=== PATIENT | male | born 1960 | race Caucasian/White ===

== ENCOUNTER 2024-03-11 13:54 | Inpatient (IN) | payer MEDICARE, BC ==
[~2024-03-11] VITALS: Ht 175.3 cm; Wt 91.7 kg
[2024-03-11 14:51] LABS: Basophils # (auto) 0 10 ^3/uL (0-0.2); Basophils % (auto) 0.3 % (0.0-2.0); Eosinophils # (auto) 0 10 ^3/uL (0-0.8); Eosinophils % (auto) 0.2 % (0.0-7.0); Hematocrit 44.9 % (41.0-53.0); Hemoglobin 15.3 g/dL (13.5-17.5); Lymphocytes # (auto) 0.9 10 ^3/uL (0.4-5.4); Lymphocytes % (auto) 8.3 % (10.0-50.0); Mean Corpuscular Hgb Conc. 34.1 g/dL (32.0-36.0); Monocytes # (auto) 0.8 10 ^3/uL (0-1.3); Monocytes % (auto) 7.4 % (0.0-12.0); Neutrophils # (auto) 8.9 10 ^3/uL (1.6-8.6); Neutrophils % (auto) 83.8 % (37.0-80.0); Nucleated Red Blood Cells % 0.1 %; Red Blood Cells 5.28 10^6/uL (4.5-5.90); Red Cell Distribution Width 13.3 % (11.8-14.3); White Blood Cell 10.6 10^3/uL (4.4-10.8)
[2024-03-11 15:03] LABS: Chloride 107 mmol/L (98-107); Potassium 4.2 mmol/L (3.5-5.1); Sodium 138 mmol/L (136-145)
[2024-03-11 15:04] LABS: Anion Gap 3 (5-15); Calcium 9.5 mg/dL (8.5-10.1); Carbon Dioxide 28 mmol/L (20-30)
[2024-03-11 15:09] LABS: BUN/Creatinine Ratio 13.2 (10.0-20.0); Blood Urea Nitrogen 15 mg/dL (9-23); Glucose 147 mg/dL (74-106)
[2024-03-11] MEDS: SODIUM CHLORIDE 0.9% 1,000 ML IV ONE ×2 (18:43→20:00)
[2024-03-11] MEDS: MORPHINE SULFATE 4 MG/ML SYR/VIAL IV ONE (18:44)
[2024-03-11] MEDS: ONDANSETRON HCL 4 MG/2 ML VIAL IV ONE (18:45)
[2024-03-11] MEDS: PIPERACILLIN-TAZOB 3.375GM 100 ML IV ONE (18:47)
[2024-03-11] MEDS ORDERED: ACETAMINOPHEN 325 MG TAB PO PRN (21:15)
[2024-03-11] MEDS ORDERED: TEMAZEPAM 15 MG CAP PO PRN (21:15)
[2024-03-11] MEDS: metroNIDAZOLE 500 MG TAB PO SCH (23:27)
[2024-03-11] MEDS: HYDROcodone-ACET 5/325MG TAB PO PRN (23:28)
[2024-03-12 04:45] LABS: Basophils # (auto) 0 10 ^3/uL (0-0.2); Basophils % (auto) 0.4 % (0.0-2.0); Eosinophils # (auto) 0.1 10 ^3/uL (0-0.8); Eosinophils % (auto) 0.8 % (0.0-7.0); Hematocrit 41.3 % (41.0-53.0); Hemoglobin 13.9 g/dL (13.5-17.5); Lymphocytes # (auto) 1.6 10 ^3/uL (0.4-5.4); Mean Corpuscular Hemoglobin 28.7 pg (28.0-32.0); Mean Corpuscular Hgb Conc. 33.6 g/dL (32.0-36.0); Mean Corpuscular Volume 85.4 fL (80.0-100.0); Monocytes # (auto) 0.7 10 ^3/uL (0-1.3); Monocytes % (auto) 7.7 % (0.0-12.0); Neutrophils # (auto) 6.3 10 ^3/uL (1.6-8.6); Neutrophils % (auto) 73.1 % (37.0-80.0); Nucleated Red Blood Cells % 0.1 %; Red Blood Cells 4.83 10^6/uL (4.5-5.90); Red Cell Distribution Width 13.6 % (11.8-14.3); White Blood Cell 8.6 10^3/uL (4.4-10.8)
[2024-03-12 05:06] LABS: Alanine Aminotransferase 12 U/L (7-40); Alkaline Phosphatase 75 U/L (46-116); Anion Gap 5 (5-15); BUN/Creatinine Ratio 14.3 (10.0-20.0); Blood Urea Nitrogen 15 mg/dL (9-23); Calcium 9.3 mg/dL (8.5-10.1); Carbon Dioxide 27 mmol/L (20-30); Chloride 109 mmol/L (98-107); Glucose 124 mg/dL (74-106); Potassium 4.1 mmol/L (3.5-5.1); Sodium 141 mmol/L (136-145)
[2024-03-12 05:07] LABS: Aspartate Aminotransferase < 8 U/L (13-40); Bilirubin, Total 1.1 mg/dL (0.2-1.0); Total Protein 6.5 g/dL (5.7-8.2)
[2024-03-12 07:28] VITALS: PULSE 68; RESP 20; O2SAT 95
[2024-03-12 08:36] VITALS: PULSE 82; RESP 18; O2SAT 95
[2024-03-12] MEDS: cefTRIAXone 1GM/50ML D5W 50 ML IV SCH (10:02)
[2024-03-12] MEDS ORDERED: OMEP20TA PO (10:07)
[2024-03-12] MEDS ORDERED: DUTA0.5C11 PO (10:07)
[2024-03-12] MEDS ORDERED: ZOFR4T PO (10:07)
[2024-03-12] MEDS ORDERED: ALPR1TAB2 PO (10:07)
[2024-03-12 13:00] VITALS: BP 149/98; PULSE 78; RESP 18; TEMP 97.3; O2SAT 98
[2024-03-12] MEDS: SODIUM CHLORIDE 0.9% 1,000 ML IV SCH (13:33)
[2024-03-12] MEDS: PANTOPRAZOLE 40 MG/10 ML VIAL INJ IV ONE (13:33)
[2024-03-12] MEDS: MORPHINE SULFATE INJ 2 MG/ml SYRG IV PRN (14:06)
[2024-03-12] MEDS: ONDANSETRON HCL 4 MG/2 ML VIAL IV PRN (14:07)
[2024-03-12 17:00] VITALS: BP 148/98; PULSE 70; RESP 18; TEMP 98.7; O2SAT 98
[2024-03-12 21:00] VITALS: BP 155/76; PULSE 71; RESP 18; TEMP 97.5; O2SAT 96
[2024-03-13 01:00] VITALS: BP 155/90; PULSE 73; RESP 18; TEMP 97.9; O2SAT 95
[2024-03-13 05:00] VITALS: BP 137/85; PULSE 75; RESP 18; TEMP 97.7; O2SAT 97
[2024-03-13 07:03] LABS: Basophils # (auto) 0 10 ^3/uL (0-0.2); Basophils % (auto) 0.2 % (0.0-2.0); Eosinophils # (auto) 0.1 10 ^3/uL (0-0.8); Eosinophils % (auto) 1.5 % (0.0-7.0); Hematocrit 39.2 % (41.0-53.0); Hemoglobin 13.4 g/dL (13.5-17.5); Lymphocytes # (auto) 1.1 10 ^3/uL (0.4-5.4); Lymphocytes % (auto) 18.5 % (10.0-50.0); Mean Corpuscular Hgb Conc. 34.2 g/dL (32.0-36.0); Mean Corpuscular Volume 84.9 fL (80.0-100.0); Monocytes # (auto) 0.4 10 ^3/uL (0-1.3); Monocytes % (auto) 6.8 % (0.0-12.0); Neutrophils # (auto) 4.2 10 ^3/uL (1.6-8.6); Red Blood Cells 4.62 10^6/uL (4.5-5.90); Red Cell Distribution Width 13.4 % (11.8-14.3); White Blood Cell 5.7 10^3/uL (4.4-10.8)
[2024-03-13 07:14] LABS: Calcium 9.4 mg/dL (8.5-10.1); Chloride 110 mmol/L (98-107); Potassium 3.9 mmol/L (3.5-5.1); Sodium 141 mmol/L (136-145)
[2024-03-13 07:15] LABS: Anion Gap 5 (5-15); Carbon Dioxide 26 mmol/L (20-30)
[2024-03-13 07:20] LABS: BUN/Creatinine Ratio 9.5 (10.0-20.0); Blood Urea Nitrogen 9 mg/dL (9-23); Glucose 105 mg/dL (74-106)
[2024-03-13 08:00] VITALS: PULSE 78; RESP 18; O2SAT 97
[2024-03-13 09:00] VITALS: BP 125/76; PULSE 78; RESP 18; TEMP 98; O2SAT 97
[2024-03-13] MEDS: PANTOPRAZOLE 40 MG/10 ML VIAL INJ IV SCH (09:07)
[2024-03-13 12:30] VITALS: BP 140/79; PULSE 72; RESP 17; TEMP 97.6; O2SAT 97
[2024-03-13] MEDS ORDERED: LEVO500T91 PO (13:28)
[2024-03-13] MEDS ORDERED: MET500T PO (13:28)
[2024-03-13 14:12] VITALS: TEMP 36.4
== END 2024-03-13 15:00 | disposition home or self-care (01) | DRG 392 ==
LOC: ER 13:54 → OVERFLOW 21:09 → WEST WING 03-12 08:28
PROVIDERS: ADMIT Nurse Practitioner; ATTEND Internal Medicine
DX: K57.32 Diverticulitis of large intestine without perforation or abscess without bleeding (principal); N20.0 Calculus of kidney; K21.9 Gastro-esophageal reflux disease without esophagitis; N40.0 Benign prostatic hyperplasia without lower urinary tract symptoms; R16.1 Splenomegaly, not elsewhere classified; Z85.01 Personal history of malignant neoplasm of esophagus; Z83.3 Family history of diabetes mellitus; Z82.49 Family history of ischemic heart disease and other diseases of the circulatory system; Z90.49 Acquired absence of other specified parts of digestive tract; Z79.899 Other long term (current) drug therapy
CPT/HCPCS: 36415; 74176; 80048; 80053; 83605; 84484; 85025; 87040; C9113; G0378; J2405; J2543

== ENCOUNTER 2024-07-28 08:19 | Emergency (ER) | payer MEDICARE, BC ==
[~2024-07-28] VITALS: Ht 175.3 cm; Wt 89.5 kg
[~2024-07-28 08:19] MED LIST: ALPR1TAB2 PO; DUTA0.5C11 PO; LEVO500T91 PO; MET500T PO; OMEP20TA PO; ZOFR4T PO
[2024-07-28] MEDS: NEOMYCIN-BACITRACIN-POLYM 15GM TOP OINT TOP SCH (09:24)
[2024-07-28 09:28] VITALS: PULSE 91; RESP 16; O2SAT 96
[2024-07-28] MEDS: HYDROcodone-ACET 5/325MG TAB PO ONE (09:28)
[2024-07-28] MEDS ORDERED: IBU600T PO (11:24)
[2024-07-28] MEDS ORDERED: CYCL-838 PO (11:24)
[2024-07-28 11:46] VITALS: BP 162/90; PULSE 72; RESP 18; O2SAT 96
[2024-07-28] MEDS ORDERED: HYDR-4902 PO (12:00)
== END 2024-07-28 11:50 | disposition home or self-care (01) ==
LOC: ER 08:19
DX: S76.012A Strain of muscle, fascia and tendon of left hip, initial encounter (principal); S73.102A Unspecified sprain of left hip, initial encounter; K21.9 Gastro-esophageal reflux disease without esophagitis; Z88.8 Allergy status to other drugs, medicaments and biological substances; Z79.899 Other long term (current) drug therapy; Z87.442 Personal history of urinary calculi; X58.XXXA Exposure to other specified factors, initial encounter; Y93.9 Activity, unspecified; Y92.89 Other specified places as the place of occurrence of the external cause; Y99.8 Other external cause status
CPT/HCPCS: 73090; 73502; 73610

== ENCOUNTER 2025-07-29 12:10 | Emergency (ER) | payer MEDICARE, BC ==
[~2025-07-29] VITALS: Ht 175.3 cm; Wt 89.7 kg
[~2025-07-29 12:10] MED LIST changes: +CYCL-838 PO; +HYDR-4902 PO; +IBU600T PO
[2025-07-29 12:39] VITALS: BP 166/98; PULSE 67; RESP 16; TEMP 98.2; O2SAT 97
[2025-07-29 12:49] LABS: Hematocrit 44.4 % (41.0-53.0); Hemoglobin 15.2 g/dL (13.5-17.5); Mean Corpuscular Hemoglobin 29.2 pg (28.0-32.0); Mean Corpuscular Volume 85.7 fL (80.0-100.0); Nucleated Red Blood Cells % 0.2 %
[2025-07-29 13:03] LABS: Alanine Aminotransferase 28 U/L (7-40); Albumin 4.1 g/dL (3.2-4.8); Alkaline Phosphatase 88 U/L (46-116); Anion Gap 9 (5-15); BUN/Creatinine Ratio 14.5 (10.0-20.0); Blood Urea Nitrogen 20 mg/dL (9-23); Calcium 9.5 mg/dL (8.7-10.4); Carbon Dioxide 28 mmol/L (20-31); Chloride 106 mmol/L (98-107); Glucose 82 mg/dL (74-106); Potassium 4.5 mmol/L (3.5-5.1); Sodium 143 mmol/L (136-145); Total Protein 6.6 g/dL (5.7-8.2)
[2025-07-29 13:04] LABS: Bilirubin, Total 0.8 mg/dL (0.2-1.0)
--- NOTE | 2025-07-29 13:05 | DVH ---
Exam: CT CT AB PEL WO CON-NO ORAL OR IV History: RLQ PAIN Comparison Study: CT CT AB PEL WO CON-NO ORAL OR IV on DOS: 03/11/24 TECHNIQUE: Multidetector CT of the abdomen was performed from lung bases to pubic symphysis. Imaging was performed without IV contrast. Axial, coronal and sagittal multiplanar reformats were obtained from the axial data set by the technologist. Radiation Dose Information: CT Dose: CTDI volume is 17.25 mGy. Dose-length product is 1067.23 mGy*cm FINDINGS: Evaluation of solid organs is limited due to lack of intravenous contrast use. Findings: Lung Bases: No acute or significant lung base finding. Normal heart size. No pleural or pericardial effusion. Liver: Hepatic steatosis. Gallbladder and Biliary Tree: Unremarkable Spleen: Unremarkable Pancreas: The pancreas is grossly normal in appearance. Adrenal Glands: Unremarkable Kidneys: Nonobstructing left upper pole renal calculi. There is a 2 cm right renal cyst. There is a punctate 1 mm right lower pole renal calculus. Bladder: Grossly unremarkable for degree of distention. Bowel: The stomach is grossly normal in appearance. Colonic diverticular disease involving the sigmoid colon. Normal appendix is visualized in the right lower quadrant without findings of appendicitis. Ascites: Absent Lymphadenopathy: No mesenteric, retroperitoneal or periportal lymphadenopathy. Abdominal Wall and Mesentery: Unremarkable. Vasculature: The visualized abdominal aorta is normal in size and caliber. Evaluation of abdominal and pelvic vessels is limited due to lack of intravenous contrast. Pelvic Organs: Unremarkable Musculoskeletal: No aggressive focal bony lesions, acute fractures or dislocation. Soft tissues: Unremarkable IMPRESSION: No acute disease. Colonic diverticular disease involving the sigmoid colon. Moderate hiatal hernia. Nonobstructing left upper pole renal calculi. There is a 2 cm right renal cyst. There is a punctate 1 mm right lower pole renal calculus. Radiation optimization: All CT scans at this facility use at least one of these dose optimization techniques: automated exposure control mA and/or kV adjustment per patient size (includes targeted exams where dose is matched to clinical indication) or iterative reconstruction.
[2025-07-29 13:08] LABS: Urine Protein, UAD Negative (Negative)
--- NOTE | 2025-07-29 13:30 | ED.PDOC ---
GI ASSESSMENT HPI Comments HPI: 64 y/o M, presents to the ED for CC of abdominal pain. Patient states, he has had a RLQ hernia [id number] that is now protruding and painful. Patient relays, that he has not seeked having a hernia repair yet d/t symptoms being intermittent. Patient denies nausea, vomiting, diarrhea, or constipation. No other symptoms or modifying factors are present at this time. Initial Vitals BP: HR: RR: O2 Sat: Temp: Past Medical history: HTN, GERD, CANCER, ESOPHAGITIS, ENLARGED PROSTATE Past Surgical history: ESOPHAGECTOMY, HERNIA REPAIR X3 Social History: Denies smoking, ETOH, and drug use. Allergies: NKDA EMERY: RLQ PAIN, HERNIA HPI: Poor Historian. Past Medical History: Past Surgical History: REVIEW OF SYSTEMS: CONSTITUTIONAL: Denies acute: fever, diaphoresis, chills, generalized weakness. HEAD: Denies acute: headache, photophobia Eyes: Denies acute: Double vision, vision loss, eye pain, eye discharge. EARS: Denies acute: tinnitus, hearing loss, ear discharge, ear pain, THROAT: Denies acute: sore throat, swelling, difficulty swallowing , pain with sw allowing, change in voice. NECK: Denies acute: neck pain, neck swelling, stiff neck. HEART: Denies acute : chest pain, palpitations, LUNGS: Denies acute: SOB, wheezing, cough, hemoptysis ABDOMEN: Denies acute: Nausea, Vomiting, diarrhea, melena , hematemesis, hematochezia SKIN: Denies acute: rash, redness, lesions, itchiness. EXTREMITIES: Denies acute: calf pain, numbness, tingling, weakness, denies pain in extremity. Denies acute: Low back pain. Neuro: Denies acute: focal neurological deficit, motor or sensory focal neurological deficit, tremors, seizure like activity, confusion, dizziness, change in mental status, loss of bowel or bladder function, cauda equina like symptoms. : Denies acute: dysuria, hematuria, flank pain, increase in urinary frequency. PSYCH: Denies acute: hallucination, suicidal ideation, homicidal ideation. PHYSICAL EXAM: General: ---no-----acute distress, awake and alert. Head: normocephalic, atraumatic. No raccoon's eyes, no lilly sign. Neck: supple, trachea is midline, no swelling. Throat: Normal phonation. Eyes:, no erythema, no purulent discharge, no proptosis, no icterus. Heart: regular rate, regular rhythm, no significant murmur appreciated. Lungs: no apparent respiratory distress, Able to speak in full sentences. No wheezing, no rhonchi, no crackles. No stridors Clear to auscultation bilaterally. Abdomen: Right lower quadrant mild tender to palpation, non distended, soft, no guarding, no rebound, + bowel sounds. Neuro: Awake, Alert, oriented to name, self, situation, follows commands GCS=15. Speech is normal. Skin: no petechia, no purpura, no cyanosis, non-pale, not jaundice. Lower extremities: --no - Pitting edema no deformity, no focal swelling, no calf TTP. Makes eye contact. moves all four extremities. Face: no apparent facial droop. Ambulating in the ED independently. ED COURSE: DISCLAIMER: This medical document was created using an electronic medical record system with voice recognition software and computerized dictation system. Although this document has been carefully reviewed, there might still be some phonetic and typographical errors. Occasional wrong-word or "sound-alike" substitutions may have occurred due to the inherent limitations of voice recognition software. These areas are purely typographical due to imperfections of the software programs and do not reflect any compromise in the patient's medical care. Please read the chart carefully and recognize, using context, where these substitutions have occurred. Chief Complaint: Abdominal Pain Time Seen by MD: 13:20 Primary Care Provider: NAYANA Reviewed Notes: Nurses Notes, Medications, Allergies Allergies: Uncoded Allergies: BENSICANE (Allergy, Unknown, 12/21/23) Home Meds Active Scripts Hydrocodone-Acetaminophen (Hydrocodone Bitartrate/AC 5-325 mg) 1 Tab Tab, 1 TAB PO Q8HP PRN for 3 Days, #9 TAB Prov:LIANE IZQUIERDO MD 07/28/24 Cyclobenzaprine Hcl (CYCLOBENZAPRINE HCL) 7.5 Mg Tab, 7.5 MG PO Q8HPRN PRN for 3 Days, #9 TAB Prov:LIANE IZQUIERDO MD 07/28/24 Ibuprofen Micronized (MOTRIN TABLET) 600 Mg Tb, 600 MG PO TID PRN, #40 TAB *Black box warning-NSAIDS can increase risk of ND & hypertension, GI irritation, ulceration, bleed, perferation. Do not use post cardiac surgery. Use short duration/lowest effective dose. Prov:LIANE IZQUIERDO MD 07/28/24 Metronidazole (Metronidazole) 500 Mg Tab, 500 MG PO TID for 7 Days, #21 TAB Prov:JAMES DELEON MD 03/13/24 Levofloxacin Hemihydrate (LEVAQUIN 500 MG) 500 Mg Tab, 500 MG PO DAILY for 7 Days, #7 TAB Prov:JAMES DELEON MD 03/13/24 Reported Medications Dutasteride (Avodart) 0.5 Mg Cap, PO, CAP 03/12/24 Ondansetron Odt 4MG Tab (ZOFRAN PO) 4 Mg Tb, 8 MG PO PRN PRN for NAUSEA / VOMITING, TAB ODT TAB-DISSOLVE IN MOUTH, THEN SWALLOW 03/12/24 Alprazolam (Xanax) 1 Mg Tab, 1 MG PO HS PRN for FOR INSOMNIA, TAB 03/12/24 Omeprazole (Gnp Omeprazole) 20 Mg Tab, 40 MG PO DAILY, TAB 03/12/24 Information Source: Patient Mode of Arrival: Ambulatory Timing: Months Duration: Intermittent Prehospital treatment: None Quality: None Vomitus: None Stool: Normal Severity: Moderate Recent: None Recent Hx of: None Pain Location: RLQ Modifying Factors: Nothing Associated sign and symptoms: Abdominal Pain Was a procedure done? Was a procedure done?: No GI differential Dx Differential Diagnosis: Hernia, Other (DDX include but not limited to d iverticulitis, colitis, gastroenteritis, acute abdomen, SBO, enteritis, constipation, volvulus, appendicitis, Gallbladder disease, choledocolithiasis, ascending cholangitis, pancreatitis, intraAbdominal mass/neoplasm, hepatitis, UTI, pylonephritis, kidney stone, aneurysm, dissection, Inflammatory bowel disease, gastroparesis, ischemic bowel.Food poisoning, bacterial/parasitic/naomy l etiology, trauma, diabetes DKA,) X-Ray, Labs, Meds, VS Vital Signs Date Time Temp Pulse Resp B/P (MAP) Pulse Ox O2 Delivery O2 Flow Rate FiO2 11//25 12:43 Room Air* 0 21 07/29/25 12:39 98.2 67 16 166/98 (120) 97 98.2 07/29/25 12:13 98.2 72 16 154/96 96 98.2 Lab Test 07/29/25 12:43 07/29/25 12:39 07/29/25 12:37 Range/Units Urine Color Yellow Yellow Urine Clarity Clear Clear Urine pH 5.5 5.0-9.0 Urine Specific [place] 1.020 1.001-1.035 Urine Protein Negative Negative Urine Ketones Negative Negative Urine Blood Negative Negative /uL Urine Nitrite Negative Negative Urine Bilirubin Negative Negative Urine Urobilinogen Normal Negative mg/dL Urine Leukocyte Esterase Negative Negative /uL Urine RBC 1 0 - 3 /hpf Urine Microscopic WBC < 1 0-3 /HPF Urine Squamous Epithelial Cells None seen <5 /hpf Urine Bacteria None seen None Seen /hpf Urine Mucus Few None Seen Urine Glucose Normal Normal mg/dL Lactic Acid Level 1.0 0.4-2.0 mmol/L White Blood Count 5.4 4.4-10.8 10^3/uL Red Blood Count 5.18 4.5-5.90 10^6/uL Hemoglobin 15.2 13.5-17.5 g/dL Hematocrit 44.4 41.0-53.0 % Mean Corpuscular Volume 85.7 80.0-100.0 fL Mean Corpuscular Hemoglobin 29.2 28.0-32.0 pg Mean Corpuscular Hemoglobin Concent 34.1 32.0-36.0 g/dL Red Cell Distribution Width 14.4 H 11.8-14.3 % Platelet Count 182 140-450 10^3/uL Mean Platelet Volume 7.6 6.9-10.8 fL Neutrophils (%) (Auto) 63.6 37.0-80.0 % Lymphocytes (%) (Auto) 28.2 10.0-50.0 % Monocytes (%) (Auto) 7.0 0.0-12.0 % Eosinophils (%) (Auto) 0.6 0.0-7.0 % Basophils (%) (Auto) 0.6 0.0-2.0 % Neutrophils # (Auto) 3.5 1.6-8.6 10 ^3/uL Lymphocytes # (Auto) 1.5 0.4-5.4 10 ^3/uL Monocytes # (Auto) 0.4 0-1.3 10 ^3/uL Eosinophils # (Auto) 0 0-0.8 10 ^3/uL Basophils # (Auto) 0 0-0.2 10 ^3/uL Nucleated Red Blood Cells 0.2 % Sodium Level 143 136-145 mmol/L Potassium Level 4.5 3.5-5.1 mmol/L Chloride Level 106 98-107 mmol/L Carbon Dioxide Level 28 20-31 mmol/L Anion Gap 9 5-15 Blood Urea Nitrogen 20 9-23 mg/dL Creatinine 1.38 H 0.700-1.30 mg/dL Glomerular Filtration Rate Calc 56 >90 mL/min BUN/Creatinine Ratio 14.5 10.0-20.0 Serum Glucose 82 74-106 mg/dL Calcium Level 9.5 8.7-10.4 mg/dL Total Bilirubin 0.8 0.2-1.0 mg/dL Aspartate Amino Transferase (AST) 19 13-40 U/L Alanine Aminotransferase (ALT) 28 7-40 U/L Alkaline Phosphatase 88 46-116 U/L Troponin I High Sensitivity 3 L </=54 ng/L Total Protein 6.6 5.7-8.2 g/dL Albumin 4.1 3.2-4.8 g/dL Lipase 31 12-53 U/L [place] [address] Ph: [phone] DIAGNOSTIC IMAGING Diagnostic Imaging Report : [id number] Signed PATIENT: KASSIE CHAPPELL ACCT: [id number] UNIT: [id number] : 1960 LOC: ER ROOM / BED: / AGE / SEX: 64 / M ADM STATUS: REG ER SERVICE 1220 ORDERING PHYSICIAN: TONYA COLON DO PROCEDURE(s): ABPL - CT AB PEL WO CON-NO ORAL OR IV REASON: RLQ PAIN ORDER NUMBER(s): [id number], ACCESSION NUMBER(s): [id number] Exam: CT CT AB PEL WO CON-NO ORAL OR IV History: RLQ PAIN Comparison Study: CT CT AB PEL WO CON-NO ORAL OR IV on DOS: 03/11/24 TECHNIQUE: Multidetector CT of the abdomen was performed from lung bases to pubic symphysis. Imaging was performed without IV contrast. Axial, coronal and sagittal multiplanar reformats were obtained from the axial data set by the technologist. Radiation Dose Information: CT Dose: CTDI volume is 17.25 mGy. Dose-length product is 1067.23 mGy*cm FINDINGS: Evaluation of solid organs is limited due to lack of intravenous contrast use. Findings: Lung Bases: No acute or significant lung base finding. Normal heart size. No pleural or pericardial effusion. Liver: Hepatic steatosis. Gallbladder and Biliary Tree: Unremarkable Spleen: Unremarkable Pancreas: The pancreas is grossly normal in appearance. Adrenal Glands: Unremarkable Kidneys: Nonobstructing left upper pole renal calculi. There is a 2 cm right renal cyst. There is a punctate 1 mm right lower pole renal calculus. Bladder: Grossly unremarkable for degree of distention. Bowel: The stomach is grossly normal in appearance. Colonic diverticular disease involving the sigmoid colon. Normal appendix is visualized in the right lower quadrant without findings of appendicitis. Ascites: Absent Lymphadenopathy: No mesenteric, retroperitoneal or periportal lymphadenopathy. Abdominal Wall and Mesentery: Unremarkable. Vasculature: The visualized abdominal aorta is normal in size and caliber. Evaluation of abdominal and pelvic vessels is limited due to lack of intravenous contrast. Pelvic Organs: Unremarkable Musculoskeletal: No aggressive focal bony lesions, acute fractures or dislocation. Soft tissues: Unremarkable IMPRESSION: No acute disease. Colonic diverticular disease involving the sigmoid colon. Moderate hiatal hernia. Nonobstructing left upper pole renal calculi. There is a 2 cm right renal cyst. There is a punctate 1 mm right lower pole renal calculus. Radiation optimization: All CT scans at this facility use at least one of these dose optimization techniques: automated exposure control mA and/or kV adjustment per patient size (includes targeted exams where dose is matched to clinical indication) or iterative reconstruction. ATED BY: MARTA JACINTO MD DICTATED DATE/TIME: 07/29/25 1306 SIGNED BY: MARTA JACINTO MD SIGNED DATE/TIME: 07/29/25 1302 CC: Time of 1ST Reevaluation: 13:50 Reevaluation 1ST: Unchanged Patient Education/Counseling: Diagnosis, Treatment Family Education/Counseling: No Family Present Comments MDM: patient presented with the above HPI.--right lower quadrant abdominal pain----workup was initiated. patient was found with the above mentioned diagnosis. the following medications were ordered: please refer to order lists of meds and tests obtained by myself Dr. Colon. Patient ED course and VS have been stabilized. Patient has been reassessed in the ED and remained in a stable condition. Pertinent incidental findings were discussed with the patient and/or family. Patient/family voices understanding and is agreeable with plan. Patient has been observed in the ED adequate length of time to insure improvement/stability. Escalation of care considered: Consideration of escalation to observation or admission Patient was DISCHARGED home in a stable condition. All the reports of any imaging studies that were ordered by myself were reviewed by myself. SEPSIS Sepsis Screen Date sepsis recognized/suspect: Jul 29, 2025 Time Sepsis recognized/suspect: 1215 Recent Procedure: No On Antibiotic Therapy: No Respiratory Rate >20: No Heart Rate >90: No Temp<36 C (96.8 F) or >38.3 C: No SBP <90 or MAP <65 mmHG: No New Acute Mental Status Change: No Is the patient on CPAP, BIPAP,: No Physician Orders [facility] (07/29/25 ) Ct Ab Pel Wo Con-No Oral Or Iv (07/29/25 12:20) Vital Signs Date Time Temp Pulse Resp B/P (MAP) Pulse Ox O2 Delivery O2 Flow Rate FiO2 07/29/25 12:43 Room Air* 0 21 07/29/25 12:39 98.2 67 16 166/98 (120) 97 98.2 07/29/25 12:13 98.2 72 16 154/96 96 98.2 Laboratory Tests Test 07/29/25 12:37 07/29/25 12:39 White Blood Count 5.4 10^3/uL (4.4-10.8) Lactic Acid Level 1.0 mmol/L (0.4-2.0) Departure 1 Departure Time of Disposition: 13:40 Impression: Primary Impression: Right lower quadrant pain Disposition: 01 HOME / SELF CARE / HOMELESS Condition: Stable Additional Instructions: Additional instructions: Please read all instructions provided in this packet carefully. You MUST follow-up with your primary care/family doctor in 1 to 2 days. If you are unable to see your primary care/family doctor, please return to our emergency room for re-assessment and re-evaluation in 1 to 2 days. Return to the emergency room here in our facility or to the nearest ER [facility] if your symptoms change or worsen. CONSULTATIONS: you MUST Follow-up for consultation as soon as possible with: -gastroenterology , urology and general surgery in 1-2 days. Please call for appointment. You MUST call the consultants office yourself to make an appointment. You may need to arrange that through your insurance and/or your primary/family doctor. If you are unable to see the hearing consultant in 1 to 2 days, you must return to our emergency room (or any other ER of your choice) for re-assessment and re- evaluation. Adequate fluid hydration. Although you have been discharged from the Emergency Department, this does not mean that you have a "clean bill of health". No definitive diagnosis for your symptoms has been made today. It is possible that you are in the process of developing a serious illness. This is why you must return to the ED without fail if any new or worsening symptoms develop. Avoid heavy lifting. Below is a copy of your radiological report for follow up: [place] [address] Ph: [phone] DIAGNOSTIC IMAGING Diagnostic Imaging Report : [id number] Signed PATIENT: KASSEI CHAPPELL ACCT: [id number] UNIT: [id number] : 1960 LOC: ER ROOM / BED: / AGE / SEX: 64 / M ADM STATUS: REG ER SERVICE 1220 ORDERING PHYSICIAN: TONYA COLON DO PROCEDURE(s): ABPL - CT AB PEL WO CON-NO ORAL OR IV REASON: RLQ PAIN ORDER NUMBER(s): [id number], ACCESSION NUMBER(s): [id number] Exam: CT CT AB PEL WO CON-NO ORAL OR IV History: RLQ PAIN Comparison Study: CT CT AB PEL WO CON-NO ORAL OR IV on DOS: 03/11/24 TECHNIQUE: Multidetector CT of the abdomen was performed from lung bases to pubic symphysis. Imaging was performed without IV contrast. Axial, coronal and sagittal multiplanar reformats were obtained from the axial data set by the technologist. Radiation Dose Information: CT Dose: CTDI volume is 17.25 mGy. Dose-length product is 1067.23 mGy*cm FINDINGS: Evaluation of solid organs is limited due to lack of intravenous contrast use. Findings: Lung Bases: No acute or significant lung base finding. Normal heart size. No pleural or pericardial effusion. Liver: Hepatic steatosis. Gallbladder and Biliary Tree: Unremarkable Spleen: Unremarkable Pancreas: The pancreas is grossly normal in appearance. Adrenal Glands: Unremarkable Kidneys: Nonobstructing left upper pole renal calculi. There is a 2 cm right renal cyst. There is a punctate 1 mm right lower pole renal calculus. Bladder: Grossly unremarkable for degree of distention. Bowel: The stomach is grossly normal in appearance. Colonic diverticular disease involving the sigmoid colon. Normal appendix is visualized in the right lower quadrant without findings of appendicitis. Ascites: Absent Lymphadenopathy: No mesenteric, retroperitoneal or periportal lymphadenopathy. Abdominal Wall and Mesentery: Unremarkable. Vasculature: The visualized abdominal aorta is normal in size and caliber. Evaluation of abdominal and pelvic vessels is limited due to lack of intravenous contrast. Pelvic Organs: Unremarkable Musculoskeletal: No aggressive focal bony lesions, acute fractures or dislocation. Soft tissues: Unremarkable IMPRESSION: No acute disease. Colonic diverticular disease involving the sigmoid colon. Moderate hiatal hernia. Nonobstructing left upper pole renal calculi. There is a 2 cm right renal cyst. There is a punctate 1 mm right lower pole renal calculus. Radiation optimization: All CT scans at this facility use at least one of these dose optimization techniques: automated exposure control mA and/or kV adjustment per patient size (includes targeted exams where dose is matched to clinical indication) or iterative reconstruction. ATED BY: MARTA JACINTO MD DICTATED DATE/TIME: 07/29/25 1303 SIGNED BY: MARTA JACINTO MD SIGNED DATE/TIME: 07/29/25 1303 CC: Discharged With: Self Critical Care Note Critical Care Time?: No I personally scribed for TONYA COLON DO ([email or web address]) on 07/29/25 at 13:30. Electronically submitted by Nathalie Pittman ([email or web address]). I personally scribed for TONYA COLON DO ([email or web address]) on 07/29/25 at 13:31. Electronically submitted by Nathalie Pittman ([email or web address]). TONYA COLON DO Jul 29, 2025 13:30
[2025-07-29 16:24] LABS: Lipase 31 U/L (12-53)
== END 2025-07-29 14:14 | disposition home or self-care (01) ==
LOC: ER 12:10
DX: R10.31 Right lower quadrant pain (principal); I10 Essential (primary) hypertension; K21.9 Gastro-esophageal reflux disease without esophagitis; Z90.49 Acquired absence of other specified parts of digestive tract; Z98.890 Other specified postprocedural states
CPT/HCPCS: 36415; 74176; 80053; 81001; 83605; 83690; 84484; 85025